=== PATIENT | male | born 1940 | race Two or more races ===

== ENCOUNTER 2017-09-03 12:35 | Emergency (ER) | payer OTHER ==
[~2017-09-03] VITALS: Ht 180.3 cm; Wt 89.8 kg
[2017-09-03 12:37] VITALS: BP 162/90; Ht 180.3 cm; Wt 89.8 kg
== END 2017-09-03 14:50 | disposition left against medical advice (07) ==
LOC: ED 12:35
DX: Z53.21 Procedure and treatment not carried out due to patient leaving prior to being seen by health care provider (principal)